=== PATIENT | female | born 1985 | race Caucasian/White ===

== ENCOUNTER 2016-11-16 11:08 | Emergency (ER) | payer OTHER ==
[~2016-11-16] VITALS: Ht 167.6 cm; Wt 93.0 kg
[2016-11-16] MEDS ORDERED: DOC-Q-LACE100 MG PO (11:15)
[2016-11-16] MEDS ORDERED: IBU800 M1 PO (11:15)
[2016-11-16] MEDS ORDERED: LIDOCAINE 2% T (11:15)
[2016-11-16] MEDS ORDERED: NATURAL FIBER0.52 GM PO (11:15)
[2016-11-16] MEDS ORDERED: PROCTOFOAM-HC 11 FOA RC (11:29)
== END 2016-11-16 11:40 | disposition home or self-care (01) ==
LOC: ED 11:08
DX: K64.8 Other hemorrhoids (principal); R03.0 Elevated blood-pressure reading, without diagnosis of hypertension; F17.200 Nicotine dependence, unspecified, uncomplicated; Z79.899 Other long term (current) drug therapy

== ENCOUNTER → 2018-12-23 | Outpatient (CLI) | payer OTHER ==
[~2018-12-23] MED LIST: DOC-Q-LACE100 MG PO; IBU800 M1 PO; LIDOCAINE 2% T; NATURAL FIBER0.52 GM PO; PROCTOFOAM-HC 11 FOA RC
== END | disposition home or self-care (01) ==
LOC: LAB 10:14
DX: E83.51 Hypocalcemia (principal)